=== PATIENT | female | born 1950 | race Caucasian/White ===

== ENCOUNTER 2017-06-06 13:23 | Outpatient (CLI) | payer MEDICARE ==
--- NOTE | 2017-06-06 15:08 | PRG ---
DATE OF SERVICE: 06/06/2017 HISTORY: Ms. Lila Carey is a very pleasant 67-year-old who presents to [facility] for evalu ation of an ulceration of the right posterior lower leg. After being seen in the [facility], the p atient has received treatment with Silverlon, PolyMem Silver and MatriStem for her ulceration. The p atient first received a trial of Silverlon followed by a trial of PolyMem silver. The patient then r eceived treatment with MatriStem. Subsequently, the patient received a trial of Apligraf. Since the patient's visit on 02/16/2017, the patient has performed dressing changes of Medihoney for her right posterior lower leg ulceration. Today, Ms. Carey presents to the [facility] Center with her ulceration o pen to air. PHYSICAL EXAMINATION: VITAL SIGNS: Temperature 97.3, pulse 73, respirations 14 and blood pressure 128/73. EXTREMITIES: The ulceration of the right posterior lower leg measures approximately 0.3 x 0.7 cm. N onviable tissue associated with the wound was debrided with an excisional partial thickness debrideme nt with the use of a curette and scissors. No purulent drainage is associated with the wound. No ce llulitis of the right lower leg is present. No maceration of the skin of the periwound is noted. No significant edema of the right foot or lower leg is present on exam today. ASSESSMENT AND PLAN: 1. Varicose veins of right lower extremity with ulcer and inflammation. Again, the ulceration has i mproved in its appearance since the patient's last visit. The ulceration has almost healed completel y and Ms. Carey will be discharged from clinic today with followup on a p.r.n. basis. The patient teixeira s been told that she may continue to leave her wound open to air. Dressing changes will be discontin ued. 2. Sigmoid diverticulitis. 3. Irritable bowel syndrome. 4. Hypothyroidism. 5. Fibromyalgia. 6. Coronary artery disease. 7. Obstructive sleep apnea. 8. Rheumatoid arthritis. 9. Hypertension. 10. History of deep venous thrombosis. 11. Gastroesophageal reflux disease. 12. Chronic obstructive pulmonary disease and asthma.
== END 2017-06-06 13:24 | disposition home or self-care (01) ==
LOC: WCC 13:23
PROVIDERS: ATTEND Family Medicine
DX: I83.219 Varicose veins of right lower extremity with both ulcer of unspecified site and inflammation (principal); L97.919 Non-pressure chronic ulcer of unspecified part of right lower leg with unspecified severity; K57.32 Diverticulitis of large intestine without perforation or abscess without bleeding; K58.9 Irritable bowel syndrome, unspecified; E03.9 Hypothyroidism, unspecified; I25.10 Atherosclerotic heart disease of native coronary artery without angina pectoris; G47.33 Obstructive sleep apnea (adult) (pediatric); M06.9 Rheumatoid arthritis, unspecified; I10 Essential (primary) hypertension; K21.9 Gastro-esophageal reflux disease without esophagitis; J44.9 Chronic obstructive pulmonary disease, unspecified; M79.7 Fibromyalgia; Z86.718 Personal history of other venous thrombosis and embolism
CPT/HCPCS: 97597

== ENCOUNTER 2017-06-28 10:25 | Outpatient (CLI) | payer MEDICARE ==
--- NOTE | 2017-07-13 12:21 | MMO ---
BILATERAL SCREENING MAMMOGRAM: History: Screening. Comparison: 2014, 2012 FINDINGS: This study is interpreted with the assistance of computer aided detection. Breasts are predominately fatty. Benign calcifications are in both breasts. No suspicious mass, architectural distortion, or microcalcifications. IMPRESSION: BIRADS 2 - benign findings. Continued annual mammographic screening recommended. POS: NATHEN
== END 2017-06-28 10:26 | disposition home or self-care (01) ==
LOC: SCSMAMMO 10:25
PROVIDERS: ATTEND Internal Medicine
DX: Z12.31 Encounter for screening mammogram for malignant neoplasm of breast (principal)
CPT/HCPCS: 77067; G0202